=== PATIENT | female | born 1985 | race American Indian/Alaskan Native ===

== ENCOUNTER 2021-06-18 03:36 | Emergency (ER) | payer SELFPAY ==
--- NOTE | 2021-06-18 07:40 | Emergency Department Report ---
ED Neck Pain/Injury HPI - General Chief Complaint: Neck Pain/Injury Stated Complaint: NECK PAIN Time Seen by Provider: 06/18/21 07:39 Mode of arrival: Ambulatory Limitations: No Limitations - Related Data Allergies Allergy/AdvReac Type Severity Reaction Status Date / Time No Known Allergies Allergy Unverified 06/18/21 04:17 ED Review of Systems ROS: Stated complaint: NECK PAIN Other details as noted in HPI ED Past Medical Hx - Past Medical History Previous Medical History?: No - Surgical History Past Surgical History?: No ED Physical Exam - General Limitations: No Limitations ED Course Vital Signs 06/18/21 04:20 Temperature 97.9 F Pulse Rate 81 Respiratory 16 Rate Blood Pressure 150/74 O2 Sat by Pulse 98 Oximetry Critical care attestation.: If time is entered above; I have spent that time in minutes in the direct care of this critically ill patient, excluding procedure time. ED Disposition Condition: Stable
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
[2021-06-18 08:55] VITALS: BP 148/72
== END 2021-06-18 08:55 | disposition home or self-care (01) ==
LOC: ED 03:36
DX: M62.838 Other muscle spasm (principal); M54.2 Cervicalgia; Z79.899 Other long term (current) drug therapy
CPT/HCPCS: 72040